=== PATIENT | male | born 1980 | race Caucasian/White ===

== ENCOUNTER 2023-06-26 07:40 | Emergency (ER) | payer SELFPAY ==
[2023-06-26 07:52] VITALS: BP 154/106
[2023-06-26 08:11] VITALS: BMI 20.5
[2023-06-26 08:15] VITALS: BP 135/110
--- NOTE | 2023-06-26 08:22 | ED.GENMED ---
History of Present Illness
General
Chief Complaint: Chest Pain
Time Seen by Provider: 06/26/23 08:00
Travel History
Have you had any contact with someone who has COVID-19?: No
Do you have any symptoms of coronavirus? Fever > 100 degrees, chills, cough, shortness of breath, sore throat, loss of taste or smell, muscle aches, or headache?: No
History of Present Illness
History of Present Illness:
43-year-old male with no significant past medical history presents to the emergency department for evaluation of palpitations and chest discomfort intermittently occurring for the past 3 days. He states that night he awoke with a severe
migraine, developed a 'violent vomiting' and pain rating from the epigastrium to the throat. States that he does feel better overall but the chest pain persists and he was encouraged by family member to seek medical evaluation. He denies any
dyspnea, fever, chills, sweats. Has no further headache or neck pain at this time.
Review of Systems
Review of Systems
Allergies reviewed?: Yes
All Other Systems: ROS reviewed and negative except as documented in HPI and ROS
Phy Exam
Physical Exam
Physical Exam:
GEN: Well appearing, NAD, WDWN
Eyes: PERRLA, EOMs intact, no scleral icterus
HENT: NCAT, oral mucosa moist. No no palpable subcutaneous emphysema to the anterior neck or supraclavicular region
Lungs: CTAB, no wheezes, rales, rhonchi, normal chest wall excursion
Cardiac: RRR, no M/R/G, no peripheral edema. Radial pulses 2+ bilat
Abdomen: S, NT, ND, NABS, no masses or hepatosplenomegaly
Neuro: AO x 3
MSK: No gross deformity or ecchymosis. No edema. No digital clubbing
Skin: No rashes, petechiae. Normal color, no pallor or jaundice.
Psych: Calm, cooperative, proper hygiene
Scores
Heart Score for Chest Pain Patients
STEMI patient?: No
History: Slightly or Non-Suspicious
ECG: Normal
Age: </= 45 years
Risk Factors: No Risk Factors
Troponin: </= Normal Limit
Heart Score for Chest Pain Patients: 0
Heart Score Risk: 2.5% MACE over next 6 weeks
Course
Orders/Labs/Results
Orders:
Orders
06/26/23 07:51
Electrocardiogram (*1) Urgent
Reason for Study: Chest Pain
06/26/23 07:52
EKG- Treatment ONCE
06/26/23 08:21
CR Chest - 2 Views Urgent
Comment:
Reason For Exam: chest pain
06/26/23 08:23
Complete Blood Count/With Diff Urgent
Comprehensive Metabolic Panel Urgent
Troponin I Urgent
Abnormal Lab Results
06/26/23
08:23
RBC 4.29 L 10^6/uL
(4.70-6.10)
MCV 99.1 H fL
(80.0-94.0)
MCH 35.4 H pg
(27.0-31.0)
MPV 10.9 H fL
(7.4-10.4)
Absolute Monos (auto) 1.0 H 10^3/uL
(0.1-0.6)
Monocytes % 13.4 H %
(1.7-9.3)
Sodium 134 L mmol/L
(135-145)
Chloride 97 L mmol/L
(98-107)
Glucose 108 H mg/dl
(70-99)
Total Bilirubin 1.8 H mg/dl
(0.2-1.3)
AST 71 H U/L
(17-59)
Total Protein 8.5 H g/dl
(6.3-8.2)
06/26/23 08:23
06/26/23 08:23
Vital Signs
Initial and Last Documented VS:
Initial Vital Signs
Temp Pulse Resp BP Pulse Ox
98.6 F 122 20 154/106 100
06/26/23 07:52 06/26/23 07:52 06/26/23 07:52 06/26/23 07:52 06/26/23 07:52
Last Documented Vital Signs
Temp Pulse Resp BP Pulse Ox
98.6 F 91 16 135/110 97
06/26/23 07:52 06/26/23 09:45 06/26/23 09:45 06/26/23 08:15 06/26/23 09:45
MDM/Problems Addressed
MDM/Problems Addressed:
Unclear etiology to the patient's symptoms. No clinical evidence for acute coronary syndrome, EKG is nonischemic and troponin is negative. Chest x-ray reveals no pathology. Certainly could be psychosomatic as he does endorse increased anxiety
occupational related. No evidence for pneumomediastinum to suggest esophageal rupture. Discussed supportive care and return parameters
Comment
Comment:
EKG independently interpreted by me shows normal sinus rhythm at a rate of [address] changes concerning for ischemia, QTc of 430
*Critical Care Note
Total Time (30-74mins, 75-104mins- exclusive of procedures): Not Applicable
ED Attending Note
-
Portions of this chart may have been created with voice recognition software.� Occasional wrong word or��sound alike� substitutions may have occurred due to the inherent limitations of voice recognition software.
Discharge Plan
Departure
Patient Disposition: Home (Routine Discharge)
Date of Disposition: 06/26/23
Time of Disposition: 09:51
Patient with high blood pressure during this ER visit?: Yes
Discharge Problem:
Atypical chest pain
Instructions: Chest Pain That Is Not Caused by the Heart (DC)
Referrals:
NONE,* [Family Provider] -
Interventions
Interventions:
*Risk Screen - Suicide Last Done: 06/26/23 08:11
*General Assessment Last Done: 06/26/23 08:11
*Neglect/Abuse Screening Last Done: 06/26/23 08:11
ED- Fall Risk Assessment Last Done: 06/26/23 08:11
*ED COVID-19 Vaccine History Last Done: 06/26/23 08:11
*Nursing Disposition Last Done: 06/26/23 10:22
ED- Cardiac Assessment Last Done: 06/26/23 08:11
Discharge Date and Time
Discharge Date/Time: 06/26/23 10:22
Print Language: DOMINICAN
[2023-06-26 08:33] LABS: % Basophils 1.1 % (0-2); % Eosinophils 4.1 % (0-6); % Immature Granulocytes 0.4 % (0-0.5); % Lymphocytes 20.5 % (20.5-51.1); % Monocytes 13.4 % (1.7-9.3); % Neutrophils 60.5 % (42.2-75.2); Absolute Basophils 0.1 10^3/uL (0-0.2); Absolute Eosinophils 0.3 10^3/uL (0-0.7); Absolute Lymphocytes 1.5 10^3/uL (1.2-3.4); Absolute Neutrophils 4.5 10^3/uL (1.4-6.5); Hematocrit 42.5 % (39.0-52.0); Hemoglobin 15.2 g/dL (13.0-18.0); Mean Corp Hgb Conc. 35.8 g/dL (33.0-37.0); Mean Corpuscular Hgb 35.4 pg (27.0-31.0); Mean Corpuscular Volume 99.1 fL (80.0-94.0); Mean Platelet Volume 10.9 fL (7.4-10.4); Nucleated Red Blood Cells % 0 % (-); Platelet Count 251 10^3/uL (130-400); Red Blood Cell Count 4.29 10^6/uL (4.70-6.10); White Blood Cell Count 7.5 10^3/uL (4.8-10.8)
[2023-06-26 08:48] LABS: ALT (SGPT) 37 U/L (0-50); AST (SGOT) 71 U/L (17-59); Alkaline Phosphatase 80 U/L (38-126); Blood Urea Nitrogen 15 mg/dl (9-20); Calcium 9.8 mg/dl (8.4-10.2); Carbon Dioxide 28 mmol/L (22-30); Chloride 97 mmol/L (98-107); Estimated Creatinine Clearance 96 ml/min; Glucose 108 mg/dl (70-99); Potassium 3.7 mmol/L (3.5-5.1); Sodium 134 mmol/L (135-145); Total Bilirubin 1.8 mg/dl (0.2-1.3); Total Protein 8.5 g/dl (6.3-8.2); eGFR > 60.00
[2023-06-26 08:53] LABS: Troponin I < 0.012 ng/ml
== END 2023-06-26 10:22 | disposition home or self-care (01) ==
LOC: EMR 07:40
PROVIDERS: Physician Assistant; EMERGENCY PHYSICIAN Student in an Organized Health Care Education/Training Program
DX: R07.89 Other chest pain (principal); R03.0 Elevated blood-pressure reading, without diagnosis of hypertension
CPT/HCPCS: 99285; 71046; 80053; 84484; 85025; 93005